=== PATIENT | male | born 1965 | race African-American/Black ===

== ENCOUNTER 2020-05-05 16:20 | Inpatient (IN) | payer MEDICAID ==
[~2020-05-05] VITALS: Ht 170.2 cm; Wt 65.0 kg
[2020-05-05 18:38] LABS: BASOPHILS % (AUTO) 0.1 % (0-1); EOSINOPHILS % (AUTO) 0 % (0-6); HEMATOCRIT 32.6 % (42.0-52.0); HEMOGLOBIN 10.7 g/dl (14.0-17.9); LYMPHOCYTES # (AUTO) 1.5 X10'3 (1.1-4.8); LYMPHOCYTES % (AUTO) 6.8 % (21-51); MEAN CORPUSCULAR HEMOGLOBIN 31.2 PG (27.0-31.0); MEAN CORPUSCULAR HGB CONC 32.9 g/dL (33.0-36.5); MEAN PLATELET VOLUME 10.4 FL (7.4-10.4); MONOCYTES # (AUTO) 1.3 X10'3 (0-0.9); MONOCYTES % (AUTO) 6.2 % (2-12); NEUTROPHILS # (AUTO) 18.6 X10'3 (1.8-7.7); NEUTROPHILS % (AUTO) 86.9 % (42-75); PLATELET COUNT 301 X10'3 (140-440); RED BLOOD COUNT 3.43 X10'6 (4.70-6.10); RED CELL DISTRIBUTION WIDTH 15.5 % (11.5-14.5); WHITE BLOOD COUNT 21.4 X10'3 (4.5-11.0)
[2020-05-05 18:51] LABS: ALANINE AMINOTRANSFERASE 41 U/L (12-78); ALBUMIN 1.4 G/DL (3.4-5.0); ALBUMIN/GLOBULIN RATIO 0.3 (1.1-1.5); ALKALINE PHOSPHATASE 176 IU/L (46-116); ANION GAP 12 (8-16); ASPARTATE AMINO TRANSFERASE 24 U/L (10-37); BLOOD UREA NITROGEN 25 MG/DL (7-18); BUN/CREATININE RATIO 26.3 (5.4-32.0); CALCIUM 8.2 MG/DL (8.5-10.1); CHLORIDE 111 MMOL/L (99-107); CREATININE 0.95 MG/DL (0.60-1.10); GLUCOSE 76 MG/DL (70-104); POTASSIUM 4.2 MMOL/L (3.5-5.1); SODIUM 143 MMOL/L (135-145); TOTAL CARBON DIOXIDE 19.8 MMOL/L (24-32); TOTAL PROTEIN 5.7 G/DL (6.4-8.2); eGFR 82 ML/MIN
--- NOTE | 2020-05-05 18:56 | NUR ---
Performed pericare for pt and obtained stool sample and sent it to the lab. Urine sample also obtained from pt's indwelling reynoso catheter.
[2020-05-05] MEDS ORDERED: normal saline 1000ml 1,000 ML IV ONE ×2 (19:05→20:15)
[2020-05-05] MEDS ORDERED: iohexol 300mg/ml 100ml inj. ONE (19:27)
[2020-05-05 19:43] LABS: CLARITY,URINE CLOUDY (Clear); COLOR,URINE AMBER (Yellow); GLUCOSE, URINE NEGATIVE (Neg); KETONES,URINE TRACE mg/dl (Neg); LEUKOCYTE ESTERASE ,URINE MODERATE (Neg); NITRITES, URINE POSITIVE (Neg); OCCULT BLOOD,URINE MODERATE (Neg); PH,URINE 5.5 (4.8-8.0); PROTEIN,URINE TRACE mg/dl (Neg); UROBILINOGEN,URINE 0.2 E.U/dL (0.2-1.0)
[2020-05-05 19:49] LABS: UA COLLECTION TYPE FOLEY CATH
[2020-05-05 20:01] LABS: BACTERIA,URINE 3+ /HPF (Neg)
[2020-05-05 20:02] LABS: MUCUS STRANDS NONE SEEN /LPF (Neg); SQUAMOUS EPITHELIAL CELL,UR NONE SEEN /LPF (FEW)
[2020-05-05] MEDS ORDERED: vancomycin/NS 1 GM ADD-VANTAGE 250 ML X 1 DOSE IV ONE (20:20)
[2020-05-05] MEDS ORDERED: temazepam 15mg capsule PO PRN (21:00)
[2020-05-05] MEDS ORDERED: acetaminophen 650mg rectal suppository RC PRN (23:25)
[2020-05-05] MEDS ORDERED: ondansetron/PF 4mg/2ml inj IV PRN (23:25)
[2020-05-05] MEDS ORDERED: potassium CL 10mEq/100ml bag 100 ML IV PRN ×2 (23:25)
[2020-05-05] MEDS ORDERED: magnesium 2GM in 50ml NS 50 ML IV PRN (23:25)
[2020-05-05] MEDS ORDERED: metoclopramide 5 mg/ml inj IV PRN (23:25)
[2020-05-05] MEDS ORDERED: magnesium 4gm in 100ml NS 100 ML IV PRN (23:25)
[2020-05-05] MEDS ORDERED: mag hydrox/Alum hydrox/simeth 30ml oral suspension PO PRN (23:25)
[2020-05-05] MEDS ORDERED: potassium Cl 20 mEq SR tablet PO PRN ×2 (23:25)
[2020-05-05] MEDS ORDERED: magnesium hydroxide 30ml (MOM) UD suspension PO PRN (23:25)
[2020-05-05] MEDS ORDERED: bisacodyl 10mg suppository rectal RC PRN (23:25)
[2020-05-05] MEDS ORDERED: HYDROcodone/acetaminophen 5mg/325mg tablet PO PRN (23:25)
[2020-05-05] MEDS ORDERED: magnesium Cl slow-release 64mg tablet PO PRN (23:25)
[2020-05-05] MEDS ORDERED: ipratropium/albuterol 3ml nebule NEB PRN (23:25)
[2020-05-05] MEDS ORDERED: acetaminophen 325mg tablet PO PRN ×2 (23:25)
[2020-05-06] VITALS (20 sets, daily range): BP systolic 105–133; BP diastolic 7–98
[2020-05-06] MEDS: CefTRIAXone/D5W-Rocephin 1gm 50 ML IV SCH ×2 (00:21→08:25)
[2020-05-06] MEDS: normal saline 1000ml 1,000 ML IV SCH ×2 (00:22→17:11)
[2020-05-06] MEDS: HYDROmorphone inj. 0.5 MG/0.5 ML DISP.SYRIN IV PRN (02:12)
[2020-05-06 03:25] LABS: ABG BASE EXCESS -8.6 mmol/L (-2.0-2.0); ABG HCO3 14.6 mmol/L (22.0-26.0); ABG OXYGEN SATURATION 95.4 % (94-97); ABG PCO2 (T) 24.3 mmHg (35.0-48.0); ABG PO2 (T) 78.9 mmHg (75.0-100.0); ALLEN'S TEST POSITIVE; FCOHb 0.2 % (0.0-3.9); FMetHb 0.3 % (0.0-1.5); FO2Hb 94.9 % (94-97); PATIENT TEMPERATURE 37.2; TOTAL HEMOGLOBIN 11.4 G/dl (14.0-18.0)
--- NOTE | 2020-05-06 04:22 | NUR ---
Problems reprioritized. Patient report given, questions answered & plan of care reviewed with Madhuri LE. Patient to be transferred to CICU room 2007 at 0500 d/t requiring pressure support from ventilator.
--- NOTE | 2020-05-06 05:10 | NUR ---
Patient in room CICU 2007. I have received report from Alysha LE (PCU) and had the opportunity to ask questions and assume patient care. Patient arrived to CICU room 2007 with RT at bedside to set up ventilator. Patient is alert and oriented, Valladares catheter in place. G-tube oozing, will re-dress and check orders to place it to suction. Pt. is tachycardic and tachypneic, BP is stable. Will continue to monitor.
[2020-05-06 06:12] LABS: BASOPHILS % (AUTO) 0 % (0-1); EOSINOPHILS % (AUTO) 0 % (0-6); HEMATOCRIT 30.2 % (42.0-52.0); LYMPHOCYTES % (AUTO) 4.5 % (21-51); MEAN CORPUSCULAR HEMOGLOBIN 31.7 PG (27.0-31.0); MEAN CORPUSCULAR VOLUME 96.1 FL (78-98); MEAN PLATELET VOLUME 10.7 FL (7.4-10.4); MONOCYTES # (AUTO) 1.2 X10'3 (0-0.9); MONOCYTES % (AUTO) 5.4 % (2-12); NEUTROPHILS # (AUTO) 20.4 X10'3 (1.8-7.7); NEUTROPHILS % (AUTO) 90.1 % (42-75); PLATELET COUNT 285 X10'3 (140-440); RED BLOOD COUNT 3.14 X10'6 (4.70-6.10); RED CELL DISTRIBUTION WIDTH 15.4 % (11.5-14.5); WHITE BLOOD COUNT 22.7 X10'3 (4.5-11.0)
--- NOTE | 2020-05-06 06:20 | NUR ---
Problems reprioritized. Patient report given, questions answered & plan of care reviewed with Barbara LE.
[2020-05-06 06:42] LABS: ALANINE AMINOTRANSFERASE 37 U/L (12-78); ALBUMIN 1.3 G/DL (3.4-5.0); ALBUMIN/GLOBULIN RATIO 0.3 (1.1-1.5); ALKALINE PHOSPHATASE 150 IU/L (46-116); ANION GAP 17 (8-16); ASPARTATE AMINO TRANSFERASE 24 U/L (10-37); BILIRUBIN,TOTAL 0.9 MG/DL (0.1-1.0); BLOOD UREA NITROGEN 25 MG/DL (7-18); BUN/CREATININE RATIO 31.6 (5.4-32.0); CALCIUM 7.8 MG/DL (8.5-10.1); CHLORIDE 112 MMOL/L (99-107); CREATININE 0.79 MG/DL (0.60-1.10); GLUCOSE 72 MG/DL (70-104); MAGNESIUM 1.7 MG/DL (1.5-2.4); PHOSPHORUS 4.5 MG/DL (2.3-4.5); POTASSIUM 3.8 MMOL/L (3.5-5.1); SODIUM 146 MMOL/L (135-145); TOTAL CARBON DIOXIDE 16.6 MMOL/L (24-32); TOTAL PROTEIN 5.4 G/DL (6.4-8.2); eGFR > 90 ML/MIN
[2020-05-06] MEDS: K and/or MAG REPLACEMENT MC SCH ×2 (08:00→20:00)
[2020-05-06 08:33] LABS: C DIFF ANTIGEN SEE COMMENTS (NEGATIVE); C DIFF SPECIMEN=DIARRHEA? ACCEPTABLE; C DIFFICILE TOXINS A&B NEGATIVE (Neg)
[2020-05-06] MEDS: vancomycin/NS 1 GM ADD-VANTAGE 250 ML IV SCH ×2 (09:09→20:42)
[2020-05-06] MEDS ORDERED: fentaNYL/PF 50MCG/1 ML 2ML syringe IV PRN (10:10)
[2020-05-06 11:36] LABS: C DIFF TOXIN (LAMP) POSITIVE (NEG)
--- NOTE | 2020-05-06 11:40 | NUR ---
Pt positive for C.diff. On contact isolation. Dr. Sandra aware. Pt currently on Vanco. Will continue to monitor.
[2020-05-06] MEDS: vancomycin 125mg/5ml ORAL solution 5ml UD bottle PO SCH ×2 (13:41→19:20)
--- NOTE | 2020-05-06 14:06 | NUR ---
Initial: Pt admit from [facility] to get a CT scan of the abdomen for confirmation of PEG tube placement. CT of abdomen shows moderate diffuse colitis versus third spacing of fluid; large amount of ascites and anasarca per physician notes. Pt intubated with a trach. No TF consult at this time. Recommendations below for if to begin alternative nutrition during admit. Recommendations were calculated using IBW as current documented wt isn't scaled. LBM 05/05, documented with diarrhea. Pt positive for C.diff. Will continue to follow closely. Recommendations: 1) IF EN, continuous Vital AF via PEG with goal rate of 65 mL/hr 2) IF EN, additional 100 mL water flush Q4H 3) IF EN, prealbumin q Friday/; daily weights Addendum: 05/06/20 at [address] Amended: Links added.
--- NOTE | 2020-05-06 18:15 | NUR ---
Patient in room CICU 2007. I have received report from Barbara LE and had the opportunity to ask questions and assume patient care.
[2020-05-06] MEDS: lactobacillus rhamnosus 10,000 MMU CELLS/CAPSULE PO SCH (19:20)
[2020-05-06] MEDS: HYDROcodone/acetaminophen 10/325mg tab PO PRN ×2 (19:21→23:39)
[2020-05-07] VITALS (24 sets, daily range): BP systolic 104–162; BP diastolic 63–87
[2020-05-07] MEDS: normal saline 1000ml 1,000 ML IV SCH ×2 (02:33→05:21)
[2020-05-07] MEDS: vancomycin 125mg/5ml ORAL solution 5ml UD bottle PO SCH ×4 (02:33→19:34)
[2020-05-07 02:45] LABS: BASOPHILS # (AUTO) 0.1 X10'3 (0-0.2); BASOPHILS % (AUTO) 0.3 % (0-1); EOSINOPHILS % (AUTO) 0 % (0-6); HEMATOCRIT 29.4 % (42.0-52.0); HEMOGLOBIN 9.6 g/dl (14.0-17.9); LYMPHOCYTES # (AUTO) 1.5 X10'3 (1.1-4.8); LYMPHOCYTES % (AUTO) 7.2 % (21-51); MEAN CORPUSCULAR HEMOGLOBIN 31.5 PG (27.0-31.0); MEAN CORPUSCULAR HGB CONC 32.6 g/dL (33.0-36.5); MEAN CORPUSCULAR VOLUME 96.5 FL (78-98); MONOCYTES # (AUTO) 1.4 X10'3 (0-0.9); MONOCYTES % (AUTO) 6.8 % (2-12); NEUTROPHILS # (AUTO) 18.2 X10'3 (1.8-7.7); NEUTROPHILS % (AUTO) 85.7 % (42-75); PLATELET COUNT 256 X10'3 (140-440); RED BLOOD COUNT 3.05 X10'6 (4.70-6.10); RED CELL DISTRIBUTION WIDTH 15.4 % (11.5-14.5); WHITE BLOOD COUNT 21.3 X10'3 (4.5-11.0)
[2020-05-07 02:53] LABS: ALANINE AMINOTRANSFERASE 30 U/L (12-78); ALBUMIN 1.2 G/DL (3.4-5.0); ALBUMIN/GLOBULIN RATIO 0.3 (1.1-1.5); ALKALINE PHOSPHATASE 162 IU/L (46-116); ANION GAP 15 (8-16); ASPARTATE AMINO TRANSFERASE 19 U/L (10-37); BILIRUBIN,TOTAL 0.7 MG/DL (0.1-1.0); BLOOD UREA NITROGEN 21 MG/DL (7-18); BUN/CREATININE RATIO 24.4 (5.4-32.0); CALCIUM 8.1 MG/DL (8.5-10.1); CHLORIDE 115 MMOL/L (99-107); CREATININE 0.86 MG/DL (0.60-1.10); GLUCOSE 87 MG/DL (70-104); MAGNESIUM 1.8 MG/DL (1.5-2.4); PHOSPHORUS 4.2 MG/DL (2.3-4.5); POTASSIUM 3.4 MMOL/L (3.5-5.1); SODIUM 148 MMOL/L (135-145); TOTAL CARBON DIOXIDE 18.4 MMOL/L (24-32); TOTAL PROTEIN 5.4 G/DL (6.4-8.2); eGFR > 90 ML/MIN
--- NOTE | 2020-05-07 06:40 | NUR ---
Problems reprioritized. Patient report given, questions answered & plan of care reviewed with Sue LE.
--- NOTE | 2020-05-07 07:06 | NUR ---
Patient in room CICU 2007. I have received report from Madhuri EL and had the opportunity to ask questions and assume patient care.
[2020-05-07] MEDS ORDERED: VANCOMYCIN LEVEL IV ONE (07:30)
[2020-05-07] MEDS: K and/or MAG REPLACEMENT MC SCH ×2 (08:00→20:00)
[2020-05-07] MEDS: CefTRIAXone/D5W-Rocephin 1gm 50 ML IV SCH (08:15)
[2020-05-07] MEDS: lactobacillus rhamnosus 10,000 MMU CELLS/CAPSULE PO SCH ×2 (08:16→19:34)
[2020-05-07] MEDS: vancomycin/NS 1 GM ADD-VANTAGE 250 ML IV SCH (08:20)
[2020-05-07 11:06] LABS: GLUCOSE,BODY FLUID 50 MG/DL; LDH,BODY FLUID 342 U/L; TOTAL PROTEIN,BODY FLUID 2.9 G/DL
[2020-05-07 11:07] LABS: LYMPHOCYTES,BODY FLUID 7 %; MONOCYTES,BODY FLUID 18 %; NEUTROPHILS,BODY FLUID 75 %
[2020-05-07 11:08] LABS: BF RBC COUNT 575 /CU MM; BF WBC COUNT 1850 /CU MM (0-1000); BFAPPEAR HAZY; BFCOLOR YELLOW; BFVOLUME 65 ML
--- NOTE | 2020-05-07 11:25 | NUR ---
Reviewed labs, blood sugar trends and inquired about nutrition with Dr. Sandra, new orders to stop normal saline and start D5@ 75 ml's hr.
[2020-05-07] MEDS: HYDROcodone/acetaminophen 10/325mg tab PO PRN ×2 (11:45→19:42)
[2020-05-07] MEDS: dextrose 5%-water 1,000 ML IV SCH (11:45)
[2020-05-07] MEDS: potassium Cl 20mEq/100mL bag 100 ML IV PRN ×2 (11:46→14:16)
--- NOTE | 2020-05-07 18:27 | NUR ---
Problems reprioritized. Patient report given, questions answered & plan of care reviewed with Bonnie LE. Pt. resting comfortably and offers no complaints at end of shift, V/S stable.
[2020-05-08] VITALS (22 sets, daily range): BP systolic 105–128; BP diastolic 70–85
[2020-05-08] MEDS: HYDROcodone/acetaminophen 10/325mg tab PO PRN (00:19)
[2020-05-08] MEDS: dextrose 5%-water 1,000 ML IV SCH ×2 (00:20→17:07)
[2020-05-08] MEDS: vancomycin 125mg/5ml ORAL solution 5ml UD bottle PO SCH ×2 (02:14→08:58)
--- NOTE | 2020-05-08 06:44 | NUR ---
Problems reprioritized. Patient report given, questions answered & plan of care reviewed with MIMI Kohli.
[2020-05-08] MEDS: K and/or MAG REPLACEMENT MC SCH ×2 (06:49→19:48)
[2020-05-08] MEDS: CefTRIAXone/D5W-Rocephin 1gm 50 ML IV SCH (08:58)
[2020-05-08] MEDS: lactobacillus rhamnosus 10,000 MMU CELLS/CAPSULE PO SCH (08:58)
[2020-05-08 09:24] LABS: BASOPHILS % (AUTO) 0.2 % (0-1); EOSINOPHILS % (AUTO) 0.3 % (0-6); HEMATOCRIT 29.7 % (42.0-52.0); HEMOGLOBIN 9.9 g/dl (14.0-17.9); LYMPHOCYTES # (AUTO) 1.1 X10'3 (1.1-4.8); LYMPHOCYTES % (AUTO) 6.2 % (21-51); MEAN CORPUSCULAR HEMOGLOBIN 31.6 PG (27.0-31.0); MEAN CORPUSCULAR HGB CONC 33.5 g/dL (33.0-36.5); MEAN CORPUSCULAR VOLUME 94.3 FL (78-98); MEAN PLATELET VOLUME 9.9 FL (7.4-10.4); MONOCYTES # (AUTO) 0.9 X10'3 (0-0.9); NEUTROPHILS # (AUTO) 15.6 X10'3 (1.8-7.7); NEUTROPHILS % (AUTO) 88.3 % (42-75); PLATELET COUNT 259 X10'3 (140-440); RED BLOOD COUNT 3.14 X10'6 (4.70-6.10); RED CELL DISTRIBUTION WIDTH 15.5 % (11.5-14.5); WHITE BLOOD COUNT 17.7 X10'3 (4.5-11.0)
[2020-05-08 09:39] LABS: ALANINE AMINOTRANSFERASE 28 U/L (12-78); ALBUMIN/GLOBULIN RATIO 0.2 (1.1-1.5); ALKALINE PHOSPHATASE 176 IU/L (46-116); ANION GAP 10 (8-16); ASPARTATE AMINO TRANSFERASE 22 U/L (10-37); BILIRUBIN,TOTAL 0.5 MG/DL (0.1-1.0); BLOOD UREA NITROGEN 15 MG/DL (7-18); BUN/CREATININE RATIO 24.6 (5.4-32.0); CALCIUM 7.6 MG/DL (8.5-10.1); CHLORIDE 113 MMOL/L (99-107); CREATININE 0.61 MG/DL (0.60-1.10); GLUCOSE 122 MG/DL (70-104); MAGNESIUM 1.5 MG/DL (1.5-2.4); PHOSPHORUS 2.9 MG/DL (2.3-4.5); POTASSIUM 3.3 MMOL/L (3.5-5.1); SODIUM 145 MMOL/L (135-145); TOTAL CARBON DIOXIDE 22.5 MMOL/L (24-32); TOTAL PROTEIN 5.2 G/DL (6.4-8.2); eGFR > 90 ML/MIN
[2020-05-08] MEDS ORDERED: acetaminophen 325mg tablet PEG PRN ×2 (11:33)
[2020-05-08] MEDS ORDERED: mag hydrox/Alum hydrox/simeth 30ml oral suspension PEG PRN (11:34)
[2020-05-08] MEDS ORDERED: temazepam 15mg capsule PEG PRN (11:34)
[2020-05-08] MEDS ORDERED: magnesium hydroxide 30ml (MOM) UD suspension PEG PRN (11:34)
--- NOTE | 2020-05-08 11:56 | NUR ---
Tube feeding consult, OK with [employer] to begin PEG tube feedings. Pending transfer back to [facility]. Pt awake, responsive, non verbal. Pt original admit from [facility] to get a CT scan of the abdomen for confirmation of PEG tube placement. CT of abdomen shows moderate diffuse colitis versus third spacing of fluid; large amount of ascites and anasarca per physician notes. Pt intubated with a trach. Recommendations were calculated using IBW as current documented wt isn't scaled. LBM 05/05, documented with diarrhea. Pt positive for C.diff. Will continue to follow closely. Recommendations: 1) Continuous tube feeding using Vital AF via PEG with goal rate of 65 mL/hr will provide total volume of 1560 ml, 1872 calories, 117 g protein, and 1265 ml water. 2) 100 mL water flush Q4H 3) prealbumin q Friday/; daily weights Addendum: 05/08/20 at [address] Amended: Links added.
[2020-05-08 12:41] LABS: PREALBUMIN 8.6 MG/DL (19-36)
[2020-05-08] MEDS: vancomycin 125mg/5ml ORAL solution 5ml UD bottle PEG SCH ×2 (17:08→19:49)
[2020-05-08] MEDS: lactobacillus rhamnosus 10,000 MMU CELLS/CAPSULE PEG SCH (19:49)
[2020-05-09] VITALS (12 sets, daily range): BP systolic 102–128; BP diastolic 60–80
[2020-05-09] MEDS: vancomycin 125mg/5ml ORAL solution 5ml UD bottle PEG SCH ×2 (01:05→07:37)
[2020-05-09 03:00] LABS: BASOPHILS # (AUTO) 0.1 X10'3 (0-0.2); BASOPHILS % (AUTO) 0.7 % (0-1); EOSINOPHILS % (AUTO) 0.1 % (0-6); HEMATOCRIT 26.9 % (42.0-52.0); HEMOGLOBIN 8.9 g/dl (14.0-17.9); LYMPHOCYTES # (AUTO) 1.6 X10'3 (1.1-4.8); MEAN CORPUSCULAR HEMOGLOBIN 31.2 PG (27.0-31.0); MEAN CORPUSCULAR HGB CONC 33.1 g/dL (33.0-36.5); MEAN CORPUSCULAR VOLUME 94.5 FL (78-98); MEAN PLATELET VOLUME 10.6 FL (7.4-10.4); MONOCYTES # (AUTO) 0.7 X10'3 (0-0.9); MONOCYTES % (AUTO) 4.6 % (2-12); NEUTROPHILS # (AUTO) 12.3 X10'3 (1.8-7.7); NEUTROPHILS % (AUTO) 83.6 % (42-75); PLATELET COUNT 233 X10'3 (140-440); RED BLOOD COUNT 2.85 X10'6 (4.70-6.10); RED CELL DISTRIBUTION WIDTH 15.6 % (11.5-14.5); WHITE BLOOD COUNT 14.8 X10'3 (4.5-11.0)
[2020-05-09 03:21] LABS: ALANINE AMINOTRANSFERASE 25 U/L (12-78); ALBUMIN/GLOBULIN RATIO 0.3 (1.1-1.5); ALKALINE PHOSPHATASE 184 IU/L (46-116); ANION GAP 9 (8-16); ASPARTATE AMINO TRANSFERASE 21 U/L (10-37); BILIRUBIN,TOTAL 0.4 MG/DL (0.1-1.0); BLOOD UREA NITROGEN 12 MG/DL (7-18); BUN/CREATININE RATIO 17.4 (5.4-32.0); CALCIUM 7.5 MG/DL (8.5-10.1); CHLORIDE 111 MMOL/L (99-107); CREATININE 0.69 MG/DL (0.60-1.10); GLUCOSE 112 MG/DL (70-104); MAGNESIUM 1.4 MG/DL (1.5-2.4); PHOSPHORUS 2.7 MG/DL (2.3-4.5); SODIUM 144 MMOL/L (135-145); TOTAL CARBON DIOXIDE 23.9 MMOL/L (24-32); TOTAL PROTEIN 4.8 G/DL (6.4-8.2); eGFR > 90 ML/MIN
[2020-05-09] MEDS: potassium Cl 20mEq/100mL bag 100 ML IV PRN ×3 (05:48→09:26)
--- NOTE | 2020-05-09 06:30 | NUR ---
Assumed care from Siria LE.
[2020-05-09] MEDS: CefTRIAXone/D5W-Rocephin 1gm 50 ML IV SCH (07:36)
[2020-05-09] MEDS: dextrose 5%-water 1,000 ML IV SCH (07:36)
[2020-05-09] MEDS: lactobacillus rhamnosus 10,000 MMU CELLS/CAPSULE PEG SCH (07:37)
[2020-05-09] MEDS: K and/or MAG REPLACEMENT MC SCH (07:39)
--- NOTE | 2020-05-09 08:30 | NUR ---
Dr. Hodgson came by patient room, made him aware that we are replacing potassium and asked if wanted mag (1.4) replaced, received replacement orders. Made TMS to have ready for transfer to [facility] for discharge today. No further orders. Addendum: 05/09/20 at 0847 by Isabel Starkey RN Also made aware of Albumin level 1.0.
[2020-05-09] MEDS ORDERED: magnesium 4gm in 100ml NS 100 ML IV PRN (08:40)
--- NOTE | 2020-05-09 09:09 | NUR ---
Received okay to d/c D5 drip since patient on TF.
[2020-05-09] MEDS: HYDROmorphone inj. 0.5 MG/0.5 ML DISP.SYRIN IV PRN (10:48)
--- NOTE | 2020-05-09 11:17 | NUR ---
Patient sent to [facility] at this time, called report to Disha UMANZOR, made his sister Deidra aware of transfer.
== END 2020-05-09 11:00 | DRG 720 ==
LOC: ER 16:21 → UNDOADMIN 23:21 → ED HOLD 23:21 → PCU 3S 05-06 01:13 → CICU 2S 05-06 05:12
PROVIDERS: ADMIT Family Medicine; ATTEND Internal Medicine
PROC: 5A1945Z Respiratory Ventilation, 24-96 Consecutive Hours (ICD-10-PCS; principal; 2020-05-05)
PROC: BW211ZZ Computerized Tomography (CT Scan) of Abdomen and Pelvis using Low Osmolar Contrast (ICD-10-PCS; 2020-05-05)
PROC: 0W9G3ZZ Drainage of Peritoneal Cavity, Percutaneous Approach (ICD-10-PCS; 2020-05-07)
DX: A41.9 Sepsis, unspecified organism (principal); A04.72 Enterocolitis due to Clostridium difficile, not specified as recurrent; B96.20 Unspecified Escherichia coli [E. coli] as the cause of diseases classified elsewhere; E46 Unspecified protein-calorie malnutrition; J44.9 Chronic obstructive pulmonary disease, unspecified; J96.90 Respiratory failure, unspecified, unspecified whether with hypoxia or hypercapnia; K59.1 Functional diarrhea; K76.9 Liver disease, unspecified; N18.3 Chronic kidney disease, stage 3 (moderate); E87.6 Hypokalemia; N30.00 Acute cystitis without hematuria; R18.8 Other ascites; Z85.118 Personal history of other malignant neoplasm of bronchus and lung; Z86.711 Personal history of pulmonary embolism; Z87.11 Personal history of peptic ulcer disease; Z93.0 Tracheostomy status; Z68.22 Body mass index [BMI] 22.0-22.9, adult
CPT/HCPCS: 36415; 36600; 49083; 71045; 74177; 80053; 80202; 81001; 82803; 82945; 82948; 83605; 83615; 83735; 84100; 84134; 84145; 84157; 85018; 85025; 87040; 87070; 87077; 87081; 87088; 87186; 87324; 87449; 87493; 89051; 93005; 94002; 94003; 94640; 94760; 99285; G0378; J0696; J1170; J3010; J3370; J3475; J3480; J7030; J7070; Q9967